=== PATIENT | male | born 1965 | race Caucasian/White ===

== ENCOUNTER 2021-12-09 10:08 | Day surgery (SDC) | payer BC ==
[~2021-12-09 10:08] MED LIST: Lactated Ringers 1,000 ML IV SCH
[2021-12-09] MEDS ORDERED: Propofol 200 MG/20 ML SDV ONE (11:33)
[2021-12-09] MEDS ORDERED: fentaNYL 100 MCG/2 ML SDV ONE (11:33)
== END 2021-12-09 13:00 | disposition home or self-care (01) ==
LOC: VM.SDS 10:08
PROVIDERS: ATTEND Surgery
DX: Z12.11 Encounter for screening for malignant neoplasm of colon (principal); I10 Essential (primary) hypertension; F41.9 Anxiety disorder, unspecified; G47.00 Insomnia, unspecified; R35.1 Nocturia; E78.5 Hyperlipidemia, unspecified; Z90.49 Acquired absence of other specified parts of digestive tract; Z98.890 Other specified postprocedural states; Z79.899 Other long term (current) drug therapy; Z87.19 Personal history of other diseases of the digestive system
CPT/HCPCS: 00812; 45378; J2704; J3010; J7120